=== PATIENT | female | born 1985 | race Caucasian/White ===

== ENCOUNTER → 2016-12-17 | Outpatient (CLI) | payer OTHER, SELFPAY ==
[~2016-12-17] MED LIST: ACET650T12 PO; DOCU10CA PO; IBUP80TA PO; prenatal PO
--- NOTE | 2016-12-17 09:34 | REP ---
BILATERAL DIGITAL SCREENING MAMMOGRAM: 12/17/2016. Clinical history: Prior right breast surgery for removal of melanoma and left breast lumpectomy for benign finding upper outer quadrant left breast. Examination is preoperative baseline mammogram for breast implants. Standard two-view mammography for each breast with an additional exaggerated CC view of the right breast. Findings: Scar markers are placed over the outer half of the right and left breast. There is dense fibroglandular tissue throughout the parenchyma in each breast. There is one coarse benign calcification in the right breast retroareolar zone. Benign fat replaced axillary nodes are noted on the left. There is no dominant mass, architectural distortion, clustered microcalcification, skin thickening or other secondary sign of malignancy. Impression: 1. BIRADS ACR category 2, benign. Benign finding. No evidence of malignancy. Asymmetric small smaller right than left breast due to prior surgery for melanoma. 2. Recommend followup mammography at age 40 or sooner if clinically warranted. This mammogram was interpreted with the aid of an FDA-approved computer-aided detection system. A. Negative x-ray reports should not delay biopsy if a dominant or clinically suspicious mass is present. B. Four to eight percent of cancers are not identified by x-ray. C. Adenosis and dense breasts may obscure an underlying neoplasm. The patient states she had a clinical breast exam in 11/2016. The patient letter being requested is M1 dense. Signed by Jaime Perez MD 12/17/2016 05:39 P
== END ==
LOC: M RAD 08:30
PROVIDERS: ATTEND Plastic Surgery
DX: Z12.31 Encounter for screening mammogram for malignant neoplasm of breast (principal)